=== PATIENT | male | born 1960 | race Caucasian/White ===

== ENCOUNTER → 2020-03-23 15:50 | Outpatient (CLI) | payer BC, SELFPAY ==
[2019-02-05 17:52] VITALS: BMI 27.4
--- NOTE | 2020-03-23 15:56 | CT_ITS ---
STUDY: CT SOFT TISSUE NECK WITH CONTRAST REASON FOR EXAM: Male, 59 years old. Enlarged lymph nodes in left neck for 3 to 4 months. Neck stiffness. History of non-Hodgkin''s lymphoma. RADIATION DOSAGE (If Supplied By Facility): CTDIvol = ( 16.11 ) mGy, DLP = ( 515.26 ) mGycm TECHNIQUE: The patient was scanned in a multi-detector CT scanner. High resolution transaxial imaging was performed following intravenous administration of IV 75mL Isovue-[id number]. Sagittal and coronal images were reconstructed. Individualized dose optimization techniques were used for this CT. COMPARISON: None. FINDINGS: Normal bilateral parotid glands. Normal bilateral vending machine refiller spaces. Normal bilateral parapharyngeal spaces. Normal bilateral carotid spaces. Normal bilateral sublingual and submandibular glands and spaces. Normal visualized nasopharynx. Normal retropharyngeal space. Normal perivertebral space. Normal visualized bilateral faucial tonsils. The visualized tongue, tongue base and oropharynx are normal. The visualized cervical lymph nodes (levels I-) are within normal size limits, and maintain normal morphology. There is no evidence of enlarged cervical lymph nodes. There is no demonstrated solid or cystic mass lesion. There is no abnormal contrast enhancement. Normal epiglottis, bilateral vallecula and hypopharynx. The pre-epiglottic and paraglottic adipose spaces are normal. Normal visualized bilateral piriform sinuses, aryepiglottic folds, vocal cords, and arytenoid-cricoid articulations. Normal subglottic trachea. Normal bilateral lobes of the thyroid gland. Normal visualized pulmonary apices. Normal visualized paranasal sinuses. Minimal degenerative changes of the cervical spine. CT/Soft Tissue Neck WITH Contrast IMPRESSION: 1. No evidence of enlarged cervical lymph nodes. 2. Degenerative changes of the cervical spine. 3. Normal enhanced CT examination of the soft tissues of the neck. Electronically Signed: Óscar Reed DO at 20:47 EST Tel [phone], Service support ,
== END ==
DX: R59.0 Localized enlarged lymph nodes (principal)
CPT/HCPCS: 70491; Q9967